=== PATIENT | female | born 1970 | race African-American/Black ===

== ENCOUNTER 2016-03-05 22:37 | Emergency (ER) | payer OTHER ==
[~2016-03-05] VITALS: Ht 160 cm; Wt 81.5 kg
[2016-03-05 22:39] VITALS: BP 151/93; PULSE 77; RESP 16; TEMP 98.2; O2SAT 98
[2016-03-05 22:53] VITALS: BP 181/99; PULSE 116; RESP 22; TEMP 98.2; O2SAT 88
[2016-03-06] MEDS ORDERED: DICL50TA3 PO (00:26)
[2016-03-06] MEDS ORDERED: CYCL1TAB29 PO (00:26)
[2016-03-06] MEDS ORDERED: NAPROXEN 500 MG TAB PO ONE (00:30)
[2016-03-06] MEDS ORDERED: CYCLOBENZAPRINE HCL 10 MG TAB PO ONE (00:30)
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
== END 2016-03-06 00:48 | disposition home or self-care (01) ==
LOC: NEPB 22:37
DX: S00.93XA Contusion of unspecified part of head, initial encounter (principal); S83.91XA Sprain of unspecified site of right knee, initial encounter; V49.88XA Car occupant (driver) (passenger) injured in other specified transport accidents, initial encounter; Y92.410 Unspecified street and highway as the place of occurrence of the external cause
CPT/HCPCS: 99283

== ENCOUNTER 2016-08-10 12:42 | Inpatient (IN) | payer OTHER ==
[~2016-08-10] VITALS: Ht 160 cm; Wt 81.0 kg
[2016-08-10] MEDS ORDERED: MULT-65 PO (14:36)
[2016-08-15 06:59] VITALS: BP 141/93; PULSE 86; RESP 18; TEMP 98.8; O2SAT 100
[2016-08-15] MEDS ORDERED: CHLORHEXIDINE GLUCONATE 2 % 1 PACK (2 CLOTHS) TOPICAL PRN (07:00)
[2016-08-15] MEDS ORDERED: ceFAZolin 2 GM PREMIX 50 ML IV SCH (07:00)
[2016-08-15] MEDS ORDERED: SODIUM CHLORID 0.9% 500 ML IV PRN (07:00)
[2016-08-15] MEDS ORDERED: LACTATED RINGER'S 1000 ML IV PRN (07:00)
[2016-08-15] MEDS ORDERED: INSULIN HUMAN REGULAR 1,000 UNITS/10 ML VIAL SQ PRN (07:00)
[2016-08-15] MEDS ORDERED: METOPROLOL TARTRATE 25 MG TAB PO PRN (07:00)
[2016-08-15] MEDS ORDERED: POVIDONE IODINE 5% (ANTISEPSIS KIT) 4 APPLICATIONS EACH NARE PRN (07:00)
[2016-08-15] MEDS ORDERED: ceFAZolin INJ 1,000 MG VIAL ONE (07:01)
[2016-08-15] MEDS ORDERED: VASOPRESSIN INJ 20 UNITS/ML VIAL ONE (07:11)
[2016-08-15] MEDS ORDERED: DEXAMETHASONE SOD PHOS 4 MG/ML VIAL ONE (07:39)
[2016-08-15] MEDS ORDERED: FAMOTIDINE 20 MG/2 ML VIAL ONE (07:39)
[2016-08-15] MEDS ORDERED: MIDAZOLAM HCL 2 MG/2 ML VIAL ONE (07:39)
[2016-08-15] MEDS ORDERED: STERILE WATER FOR INJ 20 ML VIAL ONE (08:39)
[2016-08-15] MEDS ORDERED: ONDANSETRON ODT 4 MG TAB SL PRN (11:00)
[2016-08-15] MEDS ORDERED: MORPHINE SULFATE 30 MG/30 ML PCA IV SCH (11:00)
[2016-08-15] MEDS ORDERED: NALOXONE HCL 0.4 MG/ML AMP IV PRN (11:00)
[2016-08-15] MEDS ORDERED: diphenhydrAMINE HCL 50 MG/ML VIAL IV PRN (11:00)
[2016-08-15] MEDS ORDERED: PROMETHAZINE HCL 25 MG TAB PO PRN (11:00)
[2016-08-15] MEDS ORDERED: ZOLPIDEM TARTRATE 5 MG TAB PO PRN (11:00)
[2016-08-15] MEDS ORDERED: oxyCODONE/ACETAMINOPHEN 5 MG/325 MG TAB PO PRN (11:00)
[2016-08-15] MEDS ORDERED: ONDANSETRON HCL 4 MG/2 ML VIAL IV PUSH PRN (11:00)
[2016-08-15] MEDS ORDERED: diphenhydrAMINE HCL 25 MG CAP PO PRN (11:00)
[2016-08-15] MEDS ORDERED: SODIUM CHLORIDE 0.9% FLUSH 10 ML FLUSH IV FLUSH PRN (11:00)
[2016-08-15] MEDS ORDERED: LORazepam 0.5 MG TAB PO PRN (11:00)
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
[2016-08-15] MEDS ORDERED: *morphine SULFATE 8 MG/ML PERIprocedure ONLY ONE (11:22)
[2016-08-15] MEDS ORDERED: fentaNYL CITRATE 250 MCG/5 ML AMP ONE (11:27)
[2016-08-15] MEDS ORDERED: DO NOT ADM ANY ANTICOAGULANT DRUGS PRN (11:30)
[2016-08-15] MEDS: LACTATED RINGER'S 1000 ML INJ 1,000 ML IV SCH (11:40)
[2016-08-15] MEDS: KETOROLAC TROMETHAMINE 30 MG/ML (IVP) VIAL IV PUSH SCH ×2 (11:48→17:37)
[2016-08-15] MEDS: ACETAMINOPHEN 1000 MG/100 ML VIAL IV SCH ×3 (11:50→22:02)
[2016-08-15] MEDS ORDERED: ONDANSETRON HCL 4 MG/2 ML VIAL IV PUSH ONE (12:00)
[2016-08-15] MEDS ORDERED: LACTATED RINGER'S 1000 ML INJ 1,000 ML IV ONE (12:00)
[2016-08-15] MEDS ORDERED: PROPOFOL 200 MG/20 ML AMP IV ONE (12:00)
[2016-08-15 12:40] VITALS: BP 127/86; PULSE 65; RESP 18; TEMP 98.1; O2SAT 96
[2016-08-15 16:00] VITALS: BP 152/92; PULSE 67; RESP 16; TEMP 97.2; O2SAT 99
[2016-08-15 16:16] VITALS: O2SAT 96
[2016-08-15] MEDS: PCA - TOTAL MG MORPHINE DELIVERED PER SHIFT SCH ×2 (16:22→22:00)
--- NOTE | 2016-08-15 18:20 | HHI.PR ---
Subjective Remarks Doing well, pain is well controlled w healthcare management, monty clears Objective Vital Signs Vital Signs Date Time Temp Pulse Resp B/P Pulse Ox O2 Delivery O2 Flow Rate FiO2 08/15/16 16:22 16 08/15/16 16:16 96 21 08/15/16 12:40 98.1 65 18 127/86 96 08/15/16 12:15 63 14 150/79 99 Room Air 08/15/16 12:00 62 14 143/84 98 Room Air 08/15/16 11:53 16 08/15/16 11:45 61 14 143/83 99 Room Air 08/15/16 11:30 61 14 152/86 100 Room Air 08/15/16 11:20 98.5 58 14 146/78 100 Nasal Cannula 2 08/15/16 06:59 98.8 86 18 141/93 100 I/O 08/14/16 08/14/16 08/14/16 08/15/16 08/15/16 08/15/16 07:00 15:00 23:00 07:00 15:00 23:00 Intake Total 2170 ml Output Total 2350 ml Balance -180 ml Intake Oral 570 ml IV Total 200 ml Other 1400 ml Output Urine Total 1750 ml Estimated Blood Loss 600 ml Objective Remarks Chest is clear, regular rate and rhythm. Abdomen is soft and approp tender, hypoactive bs Dressing with minimal blood Ext no CCE.. scd in place Waller clear yellow urine A/P Assessment and Plan Post Op Day 0 Doing well w DUPLEX TRIMMER will d/c waller, healthcare management, and adv diet in the am. Carolina Smith MD Aug 15, 2016 18:20
[2016-08-15 20:00] VITALS: BP 119/73; PULSE 63; RESP 17; TEMP 98; O2SAT 100
[2016-08-15] MEDS: DOCUSATE SODIUM 50 MG/SENNA 8.6 MG TAB PO SCH (20:54)
[2016-08-15] MEDS: SODIUM CHLORIDE 0.9% FLUSH 10 ML FLUSH IV FLUSH SCH (20:54)
[2016-08-16] VITALS: BP 126/71; PULSE 70; RESP 17; TEMP 98; O2SAT 95
[2016-08-16] MEDS: KETOROLAC TROMETHAMINE 30 MG/ML (IVP) VIAL IV PUSH SCH ×2 (00:10→05:30)
[2016-08-16] MEDS: LACTATED RINGER'S 1000 ML INJ 1,000 ML IV SCH (00:14)
[2016-08-16 04:00] VITALS: BP 120/67; PULSE 79; RESP 17; TEMP 97.8; O2SAT 97
[2016-08-16] MEDS: ACETAMINOPHEN 1000 MG/100 ML VIAL IV SCH (04:43)
[2016-08-16] MEDS: PCA - TOTAL MG MORPHINE DELIVERED PER SHIFT SCH (05:32)
[2016-08-16 08:00] VITALS: BP 119/76; PULSE 88; RESP 16; TEMP 98.9; O2SAT 97
[2016-08-16 08:13] LABS: AUTOMATED NEUTROPHIL # 6.7 TH/MM3 (1.8-7.7); BASOPHIL % 0.3 % (0.0-2.0); EOSINOPHIL % 0.4 % (0.0-4.0); HEMATOCRIT 29.6 % (35.0-46.0); HEMO FLAGS DIFF FINAL; LYMPH % 18.8 % (9.0-44.0); LYMPHOCYTE # 1.8 TH/MM3 (1.0-4.8); MEAN CELL VOLUME 74.9 FL (80.0-100.0); MEAN CORPUSCULAR HEMOGLOBIN 24.7 PG (27.0-34.0); MEAN CORPUSCULAR HGB CONC 32.9 % (32.0-36.0); MONO % 8.4 % (0.0-8.0); NEUT % 72.1 % (16.0-70.0); PLATELET COUNT 224 TH/MM3 (150-450); RED BLOOD COUNT 3.95 MIL/MM3 (4.00-5.30); WHITE BLOOD COUNT 9.3 TH/MM3 (4.0-11.0)
[2016-08-16] MEDS: SODIUM CHLORIDE 0.9% FLUSH 10 ML FLUSH IV FLUSH SCH (08:47)
[2016-08-16] MEDS: DOCUSATE SODIUM 50 MG/SENNA 8.6 MG TAB PO SCH (08:47)
[2016-08-16] MEDS: oxyCODONE/ACETAMINOPHEN 10 MG/325 MG TAB PO PRN ×2 (08:47→14:22)
[2016-08-16] MEDS ORDERED: IBUPROFEN 600 MG TAB PO PRN (11:00)
[2016-08-16 12:00] VITALS: BP 123/72; PULSE 74; RESP 16; TEMP 97.3; O2SAT 99
--- NOTE | 2016-08-16 13:05 | HHI.DCPOC ---
Discharge Care Plan Diagnosis: (1) S/P abdominal hysterectomy Your Health Problems Are: Incisions/drains Report Symptoms to Your Doctor -Temperature above 100.5 degrees -Redness, of incision or excessive or foul smelling drainage -Unusual pain or calf pain -Increased vaginal bleeding -Painful or difficulty urinating Goals to Promote Your Health * To prevent worsening of your condition and complications * To maintain your health at the optimal level Directions to Meet Your Goals Take your medications as prescribed Follow your dietary instruction Follow activity as directed Ensure plenty of rest for recovery Drink fluids for hydration Keep your appointments as scheduled Take your immunizations and boosters as scheduled If your symptoms worsen call your PCP, if no PCP go to Urgent Care Center or Emergency Room Smoking is Dangerous to Your Health. Avoid second hand smoke Call the 24-hour crisis hotline for domestic abuse at Carolina Smith MD Aug 16, 2016 13:05
--- NOTE | 2016-08-16 13:07 | HHI.PR ---
Subjective Remarks Doing well, pain is well controlled, eating well. ABle to void, ambulating Objective Vital Signs Vital Signs Date Time Temp Pulse Resp B/P Pulse Ox O2 Delivery O2 Flow Rate FiO2 08/16/16 08:00 98.9 88 16 119/76 97 08/16/16 05:32 18 08/16/16 04:00 97.8 79 17 120/67 97 08/16/16 00:00 98.0 70 17 126/71 95 08/15/16 22:00 18 08/15/16 20:00 98.0 63 17 119/73 100 08/15/16 16:22 16 08/15/16 16:16 96 21 08/15/16 16:00 97.2 67 16 152/92 99 I/O 08/15/16 08/15/16 08/15/16 08/16/16 08/16/16 08/16/16 07:00 15:00 23:00 07:00 15:00 23:00 Intake Total 2170 ml 1200 ml 600 ml Output Total 2350 ml 850 ml 1300 ml Balance -180 ml 350 ml -700 ml Intake Oral 570 ml 600 ml IV Total 200 ml 600 ml 600 ml Other 1400 ml Output Urine Total 1750 ml 850 ml 1300 ml Estimated Blood Loss 600 ml Result Diagram: 08/16/16 0707 08/16/16 0707 Objective Remarks Chest is clear, regular rate and rhythm. Abdomen is soft and approp tender, normoactive bs incision c/d/i with baldev in place Ext no CCE.. 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
--- NOTE | 2016-08-17 11:13 | MP ---
cc: CAROLINA SMITH MD DATE OF SURGERY 08/15/2016 PREOPERATIVE DIAGNOSIS Symptomatic fibroid uterus, menorrhagia. POSTOPERATIVE DIAGNOSIS Symptomatic fibroid uterus, menorrhagia. PROCEDURE PERFORMED Exam under anesthesia and total abdominal hysterectomy, with bilateral salpingectomy. SURGEON Carolina Smith MD SURGEON EMPLOYEE TRAINING SPECIALIST Sarah Casarez MD INDICATIONS The patient is a 45-year-old G1, P1 with an enlarged symptomatic fibroid uterus. On exam, her uterus is approximate 24 cm in size. On ultrasound, she had a large pedunculated fundal fibroid that measured 10 cm cubed and an additional four measurable fibroids that were 3 cm or greater in size. She was noting difficulty with bowel movements, rectal pressure, pressure on the bladder, discomfort with intercourse, increased abdominal girth. ANESTHESIA GETA IV FLUIDS 1400 mL of lactated Ringer. URINE OUTPUT 550 mL of clear yellow urine at the end of the case. ESTIMATED BLOOD LOSS 600 mL COMPLICATIONS None COUNTS Correct x3 INTRAOPERATIVE FINDINGS A large 15 x 10 x 10 cm fundal pedunculated fibroid and at least four 4 cm fibroids subserosal, normal tubes and ovaries bilaterally. ANTIBIOTICS Ancef 50 grams IV given pre incision. DVT PROPHYLAXIS SCD's bilateral extremities DISPOSITION To PACU in stable condition. PROCEDURE IN DETAIL After informed consent, the patient was taken to the operating room where general LMA was performed without complication. She was placed in the dorsal supine position. A Maxwell was placed under sterile conditions. The abdomen and perineum were prepped and draped in a normal sterile fashion. A vertical infraumbilical skin incision was made with a scalpel, carried down to the underlying layer of fascia with the Bovie. The fascia was incised in the midline with the Bovie. The fascial edges grasped with Ashlie clamps. The rectus muscles dissected off bluntly. The peritoneum was entered bluntly. This incision was extended bluntly. A self-retaining retractor was placed. Four moist laparotomy sponges were placed in the abdomen to retract the bowel. The large pedunculated fibroid was amputated with the Bovie. The base of the fibroid was made hemostatic with 0 Vicryl running locked stitch. The round ligament was grasped with a Tabiona clamp. A number zero pop offs was used to doubly ligate the round ligament. The Bovie was used to transect the round ligament. The anterior leaf of the round ligament was dissected in the medial caudal fashion to develop the bladder flap with Metzenbaum scissors. The same was repeated bilaterally. The bladder flap was further developed with a sponge stick. A window was made in the broad ligament and the utero-ovarian ligament was doubly clamped, cut with suture scissors [id number] followed by a free tie were used to secure this pedicle. The uterine arteries were skeletonized. A Sukhdev clamp was stretched across the uterine artery. This was doubly clamped, cut and suture ligated with 0 Vicryl. The same was performed bilaterally. The fallopian tubes were grasped with a Rajeev clamp. A Shanthi clamp was placed across the mesosalpinx. The suture scissors were used to ligate the tube [id number]. A 0 Vicryl was performed to ensure hemostasis after several bites, Sukhdev clamp was performed, cut and suture ligated to the level of the uterosacrals. A straight Jen clamp was then used bilaterally to the level of the upper cervix and curved clamps were used to go beneath the cervix and Zeppelin scissors and the Bovie used to amputate the cervix. A Sukhdev stitch was placed around either angle. A running stitch of 0 Vicryl was used to close the cuff. The uterosacral ligaments were then tied in the midline. Rhiannon was placed at the cuff base after irrigation and suctioned and good hemostasis was noted. An adhesive barrier was placed over the cuff as the ovaries were in close proximity to the vaginal cuff. The fascia and peritoneum were closed en bloc with looped PDS in a running fashion. The subcutaneous tissue was irrigated and suctioned. Hemostasis obtained with the Bovie. This layer was closed with 2-0 Vicryl interrupted stitches followed by a 2-0 running stitch. The skin was closed with baldev. A sterile dressing was placed. The patient tolerated the procedure well. She was sent to PACU in stable condition. Carolina Smith MD PE/CATHY /11:58 AM /10:52 AM
== END 2016-08-16 14:25 | disposition home or self-care (01) | DRG 743 ==
LOC: HSDI 08-15 06:12 → HOCA 08-15 12:26
PROVIDERS: ADMIT Obstetrics & Gynecology; ATTEND Obstetrics & Gynecology
PROC: 0UTC0ZZ Resection of Cervix, Open Approach (ICD-10-PCS; 2016-08-15)
PROC: 0UT70ZZ Resection of Bilateral Fallopian Tubes, Open Approach (ICD-10-PCS; 2016-08-15)
PROC: 3E0P05Z Introduction of Adhesion Barrier into Female Reproductive, Open Approach (ICD-10-PCS; 2016-08-15)
PROC: 0UT90ZZ Resection of Uterus, Open Approach (ICD-10-PCS; principal; 2016-08-15 07:48)
DX: D25.2 Subserosal leiomyoma of uterus (principal); N92.0 Excessive and frequent menstruation with regular cycle
CPT/HCPCS: 82565; 85025; 86850; 86900; 86901; 88307; 94150; C1765; J0131; J0690; J1100; J1885; J2250; J2270; J2405; J3010; J7120

== ENCOUNTER → 2016-08-10 | Outpatient (CLI) | payer OTHER ==
[~2016-08-10] MED LIST: CYCL1TAB29 PO; DICL50TA3 PO; MULT-65 PO
[2016-08-10 14:28] LABS: AUTOMATED NEUTROPHIL # 2.8 TH/MM3 (1.8-7.7); BASOPHIL % 0.7 % (0.0-2.0); EOSINOPHIL # 0.4 TH/MM3 (0-0.4); EOSINOPHIL % 6.8 % (0.0-4.0); HEMATOCRIT 34.5 % (35.0-46.0); HEMO FLAGS DIFF FINAL; LYMPH % 37.4 % (9.0-44.0); LYMPHOCYTE # 2.2 TH/MM3 (1.0-4.8); MEAN CORPUSCULAR HEMOGLOBIN 24.7 PG (27.0-34.0); MEAN CORPUSCULAR HGB CONC 32.5 % (32.0-36.0); MONO % 7.6 % (0.0-8.0); NEUT % 47.5 % (16.0-70.0); PLATELET COUNT 264 TH/MM3 (150-450); RED BLOOD COUNT 4.54 MIL/MM3 (4.00-5.30); RED CELL DISTRIBUTION WIDTH 16.1 % (11.6-17.2); WHITE BLOOD COUNT 5.9 TH/MM3 (4.0-11.0)
[2016-08-10 14:48] LABS: ANION GAP 5 MEQ/L (5-15); BLOOD UREA NITROGEN 5 MG/DL (7-18); CHLORIDE 109 MEQ/L (98-107); GLOMERULAR FILTRATION RATE 68 ML/MIN (>89); GLUCOSE,FASTING 74 MG/DL (74-99); POTASSIUM 3.3 MEQ/L (3.5-5.1); SODIUM (NA) 145 MEQ/L (136-145)
[2016-08-10 15:06] LABS: BLOOD, URINE NEG (NEG); GLUCOSE,URINE NEG (NEG); KETONE, URINE NEG (NEG); MUCUS URINE FEW /lpf (OCC); NITRITE,URINE NEG (NEG); PH, URINE 7.5 (5.0-8.5); SQUAMOUS EPITHELIAL CELL URINE 2 /hpf (0-5); URINE COLOR YELLOW (YELLW/STRAW)
[2016-08-10 15:07] LABS: COMMENT (UR) CULT NOT INDICATED; CULTURE IF INDICATED CULT NOT INDICATED
[2016-08-10 15:12] LABS: BHCG SCREEN QUALITATIVE LESS THAN 1 MIU/ML (0-5)
== END ==
LOC: CPRE 12:37
PROVIDERS: ATTEND Obstetrics & Gynecology
DX: Z01.812 Encounter for preprocedural laboratory examination (principal); D25.9 Leiomyoma of uterus, unspecified
CPT/HCPCS: 36415; 80048; 81001; 84703; 85025